=== PATIENT | female | born 1980 | race Hispanic/Latino ===

== ENCOUNTER 2023-08-08 22:59 | Emergency (ER) | payer OTHER ==
[~2023-08-08] VITALS: Ht 154.9 cm; Wt 64.0 kg
[2023-08-08 23:57] VITALS: BP 122/71; PULSE 60; RESP 22; O2SAT 98
[2023-08-09] MEDS: RABIES VACC, HUMAN DIPLOID/PF 2.5 UNIT ML IM SCH
[2023-08-09] MEDS: MORPHINE 4 MG SYG IVP ONE (00:29)
[2023-08-09] MEDS: AMOX/CLAV 875/125MG TAB PO ONE (00:29)
[2023-08-09] MEDS: ONDANSETRON 4MG INJ IVP ONE (00:29)
[2023-08-09] MEDS: KETOROLAC 30MG VIAL (30MG/ML) IVP ONE (00:30)
[2023-08-09] MEDS: TETANUS/DIPHTHERIA TOXOID [ADULT] 0.5 ML VIAL IM ONE (00:35)
[2023-08-09] MEDS: RABIES IMMUNE GLOBULIN/THIMER 150 UNITS/ML SYG IM ONE (01:04)
[2023-08-09] MEDS: LIDOCAINE HCL 1% 20 ML VIAL INJ SCH ×2 (02:00→02:05)
[2023-08-09] MEDS: LIDOCAINE HCL 1% 20 ML VIAL ONE (02:04)
[2023-08-09] MEDS: HYDROMORPHONE 0.5 MG SYG (0.5MG/0.5ML) IVP ONE (02:06)
[2023-08-09] MEDS ORDERED: AMOX1TAB16 PO (02:52)
[2023-08-09] MEDS ORDERED: IBUP-2070 PO (02:52)
== END 2023-08-09 03:37 | disposition home or self-care (01) ==
LOC: EDH 22:59
DX: S41.011A Laceration without foreign body of right shoulder, initial encounter (principal); S50.12XA Contusion of left forearm, initial encounter; W54.0XXA Bitten by dog, initial encounter; Y93.89 Activity, other specified; Y92.89 Other specified places as the place of occurrence of the external cause; Y99.8 Other external cause status
CPT/HCPCS: 99284; 73100; 73090; 73060; 73030; 12002; 96374; 96375; 90714; 90471; J2405; J2270; J1885; J1170